=== PATIENT | female | born 1995 | race Caucasian/White ===

== ENCOUNTER → 2017-09-30 15:05 | Outpatient (CLI) | payer BC, SELFPAY ==
[2017-10-03 16:48] LABS: HPV Reflexed? NOT INDICATED
== END ==
PROVIDERS: Visit Provider Obstetrics & Gynecology
DX: Z12.4 Encounter for screening for malignant neoplasm of cervix (principal)
CPT/HCPCS: 88175; G0145

== ENCOUNTER → 2018-09-30 13:31 | Outpatient (CLI) | payer BC, SELFPAY ==
[2018-10-03 12:56] LABS: HPV Reflexed? NOT INDICATED
== END ==
PROVIDERS: Visit Provider Obstetrics & Gynecology
DX: Z12.4 Encounter for screening for malignant neoplasm of cervix (principal)
CPT/HCPCS: 87624; 88175; G0145